=== PATIENT | male | born 1985 | race African-American/Black ===

== ENCOUNTER 2024-11-28 08:31 | Emergency (ER) | payer MEDICAID ==
[~2024-11-28] VITALS: Ht 180.3 cm; Wt 138.0 kg
[2024-11-28 08:43] VITALS: O2SAT 96
[2024-11-28 09:15] LABS: CLARITY URINE CLEAR (CLEAR); COLOR URINE YELLOW (YELLOW); GLUCOSE URINE NEGATIVE (NEGATIVE); KETONES URINE NEGATIVE (NEGATIVE); LEUKOCYTE ESTERASE URINE NEGATIVE (NEGATIVE); NITRITE URINE NEGATIVE (NEGATIVE); OCCULT BLOOD URINE NEGATIVE (NEGATIVE); PH URINE 7.5 (4.5-8.0); PROTEIN URINE NEGATIVE (NEGATIVE); SPECIFIC GRAVITY URINE 1.005 (1.005-1.030); UROBILINOGEN URINE 0.2 E.U./dL (0.2-1.0)
[2024-11-28 09:27] LABS: BASOPHILS % 0.6 % (0.0-2.0); DIFFERENTIAL COMMENT 0; EOSINOPHILS % 0.9 % (0.0-5.0); HEMATOCRIT. 38.3 % (42.0-52.0); HEMOGLOBIN. 12.2 g/dL (14.0-18.0); LYMPHOCYTES % 15.3 % (20.0-50.0); MEAN CORPUSCULAR HEMOGLOBIN 22.8 pg (28.0-32.0); MEAN CORPUSCULAR HGB CONC 31.7 g/dL (31.0-37.0); MEAN CORPUSCULAR VOLUME 71.8 fL (80.0-94.0); MEAN PLATELET VOLUME 8.2 fl (7.4-10.4); MONOCYTES % 10.6 % (2.0-8.0); NEUTROPHILS % 72.6 % (40.0-76.0); PLATELET 363 x1000/uL (130-400); RED BLOOD CELL COUNT 5.34 mill/uL (4.7-6.1); WHITE BLOOD COUNT 10.2 x1000/uL (4.5-11.0)
[2024-11-28 09:41] LABS: CHLORIDE 104 mEq/L (98-107); POTASSIUM 4.1 mEq/L (3.5-5.1); SODIUM 138 mEq/L (136-145)
[2024-11-28 09:42] LABS: CARBON DIOXIDE 28 mEq/L (21-32)
[2024-11-28 09:43] LABS: CALCIUM 9.3 mg/dL (8.7-10.4)
[2024-11-28 09:48] LABS: GLUCOSE 101 mg/dL (70-105); UREA NITROGEN BLOOD 8 mg/dL (9-23)
[2024-11-28] MEDS ORDERED: BROM118S47 PO (10:10)
[2024-11-28] MEDS ORDERED: ALBU90AE INH (10:10)
[2024-11-28] MEDS ORDERED: IBUP-2029 MT (10:10)
[2024-11-28] MEDS: DEXAMETHASONE 4MG/ML 1ML VIAL IM ONE (10:11)
[2024-11-28 10:26] VITALS: BP 145/97; PULSE 97; RESP 20; TEMP 36.9; O2SAT 97
== END 2024-11-28 10:24 | disposition home or self-care (01) ==
LOC: ER 08:31
DX: J02.9 Acute pharyngitis, unspecified (principal); J45.909 Unspecified asthma, uncomplicated; Z79.899 Other long term (current) drug therapy
CPT/HCPCS: 99284; 71045; 80048; 81003; 85025; 36415; 96372; J1100